=== PATIENT | male | born 1995 | race Caucasian/White ===

== ENCOUNTER 2017-08-03 09:26 | Inpatient (IN) | payer BC ==
--- NOTE | 2017-08-03 10:09 | EDPHY ---
H & P Time Seen by Provider: 08/03/17 09:37 HPI/ROS: CHIEF COMPLAINT: Hallucinating, delusional HISTORY OF PRESENT ILLNESS: 22-year-old male presents to the emergency department by private vehicle with his mother and father with loosen a shins and acting delusional over last few days. The patient was seen at [facility] yesterday was given 5 mg of Zyprexa twice. [facility] and then the patient left without being seen. Today the patient is cooperative and understands that he will need a mental health evaluation. The patient denies suicidal homicidal ideation. The patient states "I feel like I am in a dreamlike state". He does admit to using Xanax and drinking alcohol in April. He also smokes marijuana daily. He also used cocaine for short time in April as well. No other substance abuse at the family is aware of. The mother states that he will have conversations with himself frequently and is not aware where he is. No reported trauma. He has no physical complaints. He has not slept well in the last several days. REVIEW OF SYSTEMS: Constitutional: No fever, no chills. Eyes: No double or blurry vision. ENT: No sore throat. Respiratory: No cough, no shortness of breath. Cardiac: No chest pain. Gastrointestinal: No abdominal pain, vomiting or diarrhea. Genitourinary: No dysuria. Musculoskeletal: No neck or back pain. Skin: No rashes. Neurological: No headache. Past Medical/Surgical History: Marijuana use Social History: Rob at [facility] from [place] Smoking Status: Never smoked Physical Exam: General Appearance: Alert, no distress. Vital signs are stable. Afebrile. He is cooperative. He is mentating normally and answering questions appropriately. His mother and father at bedside. Eyes: Pupils equal and round. Extraocular motions are all intact. ENT: Mouth: Mucous membranes moist. Respiratory: No wheezing, rhonchi, or rales, lungs are clear to auscultation. Cardiovascular: Regular rate and rhythm. Gastrointestinal: Abdomen is soft and nontender, no masses, no rebound or guarding, bowel sounds normal. Neurological: Alert and oriented x 3, cranial nerves II through XII grossly intact Skin: Warm and dry, no rashes. Musculoskeletal: Nontender to palpate along the cervical, thoracic or lumbar spine. Neck is supple. Extremities: Full range of motion and no peripheral edema. Psychiatric: Patient is oriented X 3, there is no agitation. Constitutional: Initial Vital Signs Temperature (C) 36.7 C 08/03/17 09:28 Heart Rate 83 08/03/17 09:28 Respiratory Rate 20 08/03/17 09:28 Blood Pressure 113/52 L 08/03/17 09:28 O2 Sat (%) 97 08/03/17 09:28 O2 Delivery Mode Room Air Allergies/Adverse Reactions: No Known Allergies Allergy (Unverified 08/03/17 09:28) Home Medications: Medication Instructions Recorded Zyprexa 08/03/17 Medical Decision Making ED Course/Re-evaluation: The patient was placed on an M1 hold. He will be evaluated by mental health. Laboratory studies are all within normal limits. Urine tox screen positive for marijuana Patient has been evaluated by mental health and will be admitted to [address] [place] [address] unit. Differential Diagnosis: Altered mental status including but not limited to psychotic break, drug induced psychosis, hypoglycemia, infectious process, electrolyte abnormality, head injury and intoxicants. - Data Points Laboratory Results: Laboratory Results 08/03/17 09:45 08/03/17 09:45 08/03/17 08/03/17 08/03/17 09:57 09:45 09:45 WBC 7.08 10^3/uL 10^3/uL (3.80-9.50) RBC 5.53 10^6/uL 10^6/uL (4.40-6.38) Hgb 18.0 g/dL H g/dL (13.7-17.5) Hct 52.3 % H % (40.0-51.0) MCV 94.6 fL fL (81.5-99.8) MCH 32.5 pg pg (27.9-34.1) MCHC 34.4 g/dL g/dL (32.4-36.7) RDW 13.0 % % (11.5-15.2) Plt Count 221 10^3/uL 10^3/uL (150-400) MPV 10.6 fL fL (8.7-11.7) Neut % (Auto) 63.6 % % (39.3-74.2) Lymph % (Auto) 22.5 % % (15.0-45.0) [place] % (Auto) 10.2 % % (4.5-13.0) Eos % (Auto) 1.6 % % (0.6-7.6) Baso % (Auto) 1.4 % % (0.3-1.7) Nucleat RBC Rel Count 0.0 % % (0.0-0.2) Absolute Neuts (auto) 4.51 10^3/uL 10^3/uL (1.70-6.50) Absolute Lymphs (auto) 1.59 10^3/uL 10^3/uL (1.00-3.00) Absolute Monos (auto) 0.72 10^3/uL 10^3/uL (0.30-0.80) Absolute Eos (auto) 0.11 10^3/uL 10^3/uL (0.03-0.40) Absolute Basos (auto) 0.10 10^3/uL 10^3/uL (0.02-0.10) Absolute Nucleated RBC 0.00 10^3/uL 10^3/uL (0-0.01) Immature Gran % 0.7 % % (0.0-1.1) Immature Gran # 0.05 10^3/uL 10^3/uL (0.00-0.10) Sodium 147 mEq/L H mEq/L (135-145) Potassium 4.5 mEq/L mEq/L (3.5-5.2) Chloride 104 mEq/L mEq/L (97-110) Carbon Dioxide 27 mEq/l mEq/l (22-31) Anion Gap 16 mEq/L mEq/L (8-16) BUN 16 mg/dL mg/dL (7-23) Creatinine 1.1 mg/dL mg/dL (0.7-1.3) Estimated GFR > 60 Glucose 44 mg/dL L mg/dL (70-100) Calcium 10.1 mg/dL mg/dL (8.5-10.4) TSH 0.732 uIU/mL uIU/mL (0.465-4.680) Urine Opiates Screen NEGATIVE (NEGATIVE) Urine Barbiturates NEGATIVE (NEGATIVE) Ur Phencyclidine Scrn NEGATIVE (NEGATIVE) Ur Amphetamine Screen NEGATIVE (NEGATIVE) U Benzodiazepines Scrn NEGATIVE (NEGATIVE) Urine Cocaine Screen NEGATIVE (NEGATIVE) U Marijuana (THC) Screen NON-NEGATIVE H (NEGATIVE) Ethyl Alcohol < 10 mg/dL mg/dL (0-10) Departure - Departure Disposition: [facility] IP Clinical Impression: Acute psychosis, Delusional disorder, Hallucinations Condition: Good Referrals: RUSH HOPSON [Other] - As per Instructions
[2017-08-03 10:14] LABS: PLATELET COUNT 221 10^3/uL (150-400)
[2017-08-03] MEDS ORDERED: ACETAMINOPHEN 325 MG TAB PO PRN (19:33)
[2017-08-03] MEDS ORDERED: LORazepam 0.5 MG TAB PO PRN (19:33)
[2017-08-03] MEDS ORDERED: MAGNESIUM HYDROXIDE 30 ML UDCUP PO PRN (19:34)
[2017-08-03] MEDS ORDERED: MAG HYDROX/AL HYDROX/SIMETH 30 ML UDCUP PO PRN (19:34)
[2017-08-03] MEDS: OLANZapine DISINTEGR 5 MG TAB PO PRN (20:28)
[2017-08-03] MEDS: NICOTINE POLACRILEX 2 MG GUM B PRN (20:29)
[2017-08-04 06:44] VITALS: RESP 14
[2017-08-04] MEDS: NICOTINE POLACRILEX 2 MG GUM B PRN ×3 (09:50→20:01)
[2017-08-04] MEDS ORDERED: LORazepam 0.5 MG TAB PO PRN (12:18)
[2017-08-04] MEDS: OLANZapine DISINTEGR 5 MG TAB PO PRN (13:06)
--- NOTE | 2017-08-04 14:28 | BAPA ---
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 His parents live in [place] but are currently in [place] visiting. CHIEF COMPLAINT: "My parents are concerned." HISTORY OF PRESENT ILLNESS: The patient is a limited historian with limited detail to his response to questions. The patient reported that he had a decline in grades over the past year. He admitted to abusing alcohol several days a week with binge drinking. He had intermittently used sedatives like Xanax and cocaine around the holidays. He smokes cannabis 3 times a day. He reports living in a fraternity house. Apparently, he had last week off from school for spring. His parents came from [place] and the 3 of them went to [place] to go skiing. During that time, apparently, the patient had severe insomnia and went 4 days without sleep. During that time, he was acting erratically and disorganized and was briefly agitated. He made strange statements about seeing camels and reported people were coming into his hotel room. He also reported hearing voices of people talking to him that were not there. He also was acting bizarre and grabbing things that were not there and acting strange. He apparently was taken to the emergency room at [employer] and started on olanzapine 5 mg at night and given a prescription for a few days of this medication. The family drove the patient back to [place]. The patient continued to be symptomatic with mood swings, irritability, agitation, disorganized thinking, disorganized behavior and possible auditory hallucinations, and his parents took the patient to the [facility] Emergency Room. There he was guarded and minimized his symptoms. He was placed on an M1 hold yesterday in the morning in the [facility] Emergency Department and then admitted to the psychiatric unit over here at [address] [place] [address]. The patient did take Zyprexa 5 mg last night along with 1 mg lorazepam. The patient reports this morning he continues to have racing thoughts. He reports remission of auditory hallucinations of 1 or 2 voices commenting on his actions. He denies any hallucinations today or any command hallucinations. He denies suicidal or homicidal thoughts. He reports over the past week having progressive worsening insomnia including going 4 days without sleep. He endorses mood swings, irritability, decreased need for sleep, as well as racing thoughts. He denies any plans to hurt himself or others. He denies paranoia today but describes having some paranoia prior to the [employer] ER visit. He denies feeling hopeless, helpless, or suicidal. He reports smoking cannabis 3 times a day most of the past 2 years. He reports binge drinking alcohol 2 to 3 times a week over 5 drinks. He reports past abuse of cocaine and Xanax but none in the past week. He denies any physical complaints right now or any recent stressful life events. Patient initially refused to allow this M.D. to speak to his mother, who was visiting on the unit today, but later agreed to sign a BERNARD to allow her to be involved with his discharge planning. PAST PSYCHIATRIC HISTORY: The patient has no prior psychiatric hospitalizations. He has no history of suicide attempts or violence toward others. He denies any history of arrests. The patient reports seeing an outpatient psychiatrist in [place] for possible diagnosis of attention deficit hyperactivity disorder during grade school, middle school and high school. He reports intermittently taking Adderall, Vyvanse, and Concerta over several years but none recently. The patient's mother reports the patient became more irritable with Vyvanse and Adderall and never took Concerta regularly. MEDICATIONS: Zyprexa 5 mg p.o. at bedtime that was prescribed from the [employer] emergency room recently. ALLERGIES: No known drug allergies. PAST MEDICAL HISTORY: denies any chronic medical problems or any history of head injuries or seizures. SOCIAL HISTORY: He is raised by his parents without abuse or neglect. He denies trauma. His parents live in [place], but they are currently in [facility]. 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 He reports getting B's and C's. He reports getting along with his housemates in his fraternity house. He has never been , has no children. No history of service. FAMILY HISTORY: He denies any known family history of severe mental illness or suicide. LABORATORY: Urine tox screen was positive for cannabis, negative for other drugs of abuse. Alcohol level is negative. White blood cell count 7.0, hemoglobin 18.0, platelet count 221. Sodium 147, potassium 4.5, creatinine 1.1 , glucose 44. In the emergency room, a repeat was 105. Hemoglobin A1c was 4.7, calcium 10.1, AST 21, ALT 23. Non-fasting lipid panel: Triglycerides 137, LDL 28, HDL 51. TSH 0.6. VITAL SIGNS: 170 cm tall, 63.5 kg with a BMI of 21.9. Blood pressure 108/65, heart rate 54, respiratory rate 14, pulse ox 96% on room air, temperature is afebrile. MENTAL STATUS EXAMINATION: He is alert white male who is somewhat thin. He is cooperative. His speech is rapid and loud at times. His mood is "pissed off that I am here." His affect is briefly irritable, but later he is quietly reading in his room. His thoughts are organized but have very limited detail and he appears illogical at times discussing recent events. He denies auditory hallucinations this morning. He reported auditory hallucinations of 2 voices commenting on his actions just over the past week. He denies paranoia that anyone is trying to hurt him. He denies any violent thoughts. He denies suicidal thoughts. His insight appears to be limited. His judgment is questionable. The patient initially reported he did not want his mother involved in his treatment, but later agreed to have her involved and this MD met with the patient and his mother on the unit. During that visit, the patient ate a large burrito and was calm mostly but briefly irritable talking to his mother and to this M.D. ASSESSMENT: 1. Bipolar disorder type 1, most recent episode manic, severe. 2. Cannabis related psychotic disorder. 3. Cannabis use disorder, severe. 4. Alcohol use disorder, mild. 5. History of sedative and stimulant abuse. The overall assessment is the patient apparently had manic symptoms of racing thoughts, severe insomnia and erratic behavior, and also developed some psychotic symptoms including paranoia and hallucinations, concurrent with cannabis abuse. The patient is mostly calm but somewhat illogical this morning and briefly irritable. He denies any dangerous thoughts. He did tolerate Zyprexa 5 mg last night and also received 1 mg of lorazepam last night. He apparently had gotten olanzapine for few nights from the [employer] emergency department. PLAN: 1. The patient is on an M1 hold for grave disability. 2. The patient will be on 15 minute safety checks to monitor his behavior. 3. Will monitor for mood stability, irritability, and bipolar symptoms. 4. Discussed the risks and benefits of antipsychotic medications along with lithium and Depakote as mood stabilizers. Patient prefers to continue olanzapine as he reports some benefit from this medication as he is no longer having hallucinations and is having somewhat improved sleep. The patient was given information about olanzapine causing tardive dyskinesia, weight gain, diabetes, metabolic syndrome. We will increase the dose from 5 mg to 10 mg using the olanzapine oral dissolving tablet Zydis. 5. The patient declined an alternative treatment with either lithium or Depakote after discussion of side effects and risks. Discussed possibly working with an outpatient provider to transition off olanzapine to one of these alternative mood stabilizers in the future if stable. 6. Patient will sign a release of information for [facility] to arrange for psychiatry followup. 7. The patient's mother visited on the unit and reviewed the assessment, and was in agreement with the treatment plan. 8. The patient has nicotine gum p.r.n. for nicotine cravings as he intermittently smokes cigarettes. 9. Discussed with the patient the dangers of alcohol use causing impulsivity, blackouts, amnesia, severe mood swings and increasing the risk of suicide and violence. The patient is not interested in any type of substance abuse treatment for alcohol use disorder. 10. Discussed the dangers of cannabis causing anxiety, paranoia, psychosis and agitation. The patient is not interested in quitting cannabis or getting any type of substance use treatment at this time. 11. Patient will have a baseline physical exam by the hospitalist. He was cleared by the Emergency Department physician to be admitted to [facility]. 12. Patient had a low glucose in the ER but a glucometer on the unit was within normal limits. /[id number]/MODL MTDD
--- NOTE | 2017-08-04 19:54 | BCON ---
[f rep st] BEHAVIORAL HEALTH CONSULTATION INTERNAL MEDICINE CONSULTATION DATE OF CONSULTATION: 08/04/2017 REFERRING PHYSICIAN: Maximiliano Tom MD REASON FOR REFERRAL: Medical clearance for inpatient behavioral health stay. HISTORY OF PRESENT ILLNESS: This patient was brought to the emergency department by his mother and f ather with hallucinations and delusions over several days. He was seen at the [facility] th e previous day and given 5 mg of Zyprexa x2. He is currently without any acute complaints. PAST MEDICAL HISTORY: He denies any history of any medical problems. PAST SURGICAL HISTORY: He has had surgery for a football injury on his right shoulder. MEDICATIONS: He was not on any medications. 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 He lives with alfa kearney roommates. He denies tobacco smoking. He reports drinking alcohol, up to 6 beers at a time, venecia andrea on weekends. FAMILY HISTORY: Noncontributory. REVIEW OF SYSTEMS: A 10-point review of systems was conducted and was negative other than his descri ption of currently feeling under stress. PHYSICAL EXAMINATION: VITALS: Blood pressure is 108/65, heart rate is 54, respiratory rate is 14, o xygen saturation is 96% on room air, temperature is 36.5 degrees centigrade. His weight is 63.5 kg f or a body mass index of 21.9. GENERAL: This is a well-nourished, well-developed man. Appears his c hronologic age. Cooperative and in no acute distress. HEENT: Extraocular movements are intact. Pu pils are equal, round, reactive to light. Mucous membranes are moist. Dentition is in good conditio n. NECK: Supple. HEART: Regular rate and rhythm with no murmurs, rubs, or gallops. LUNGS: Clear to auscultation bilaterally. ABDOMEN: Benign. EXTREMITIES: There is no cyanosis, clubbing, or ed camilo. NEUROLOGIC: He is alert and oriented x3. Cranial nerves 2-12 are grossly intact. There is no focal weakness. Sensation is intact to light touch, and gait is within normal limits. LABORATORY STUDIES: Drawn in the emergency department. CBC showed a slightly elevated hemoglobin an d hematocrit at 18 and 52.3, otherwise was within normal limits. Serum chemistries showed an elevate d sodium at 147; his blood sugar was low at 44. Hemoglobin A1c was 4.7. Liver functions were normal . Cholesterol was low at 106, with an LDL also low at 28, HDL was normal at 51. TSH was normal. To xicology screen in the serum was negative for ethyl alcohol and in the urine was non negative for mar ijuana but otherwise negative for substances of abuse. ASSESSMENT AND RECOMMENDATIONS: 1. Mental health problems, pending further evaluation and management per Psychiatry and the mental [facility] team. 2. Hypernatremia of unclear etiology together with a slight polycythemia or hemoconcentration on the CBC. Might implicate dehydration. Abnormalities are very minor and no further evaluation is indica ayla at present. Would monitor for normal oral food and fluid intake. 3. Alcohol use disorder. Might benefit from specific substance abuse counseling regarding binge dri nking. I see no medical contraindications to this patient's continued stay [facility] or to any psychiatric medications or procedures. Thank you very much for including me in the care of this patient and please do not hesitate to contac t me or the hospitalist service should there be need for further medical evaluation. /[id number]/MODL
[2017-08-04] MEDS: OLANZapine DISINTEGR 10 MG TAB PO SCH (20:01)
[2017-08-05] MEDS: NICOTINE POLACRILEX 2 MG GUM B PRN ×3 (09:52→20:23)
[2017-08-05] MEDS ORDERED: hydrOXYzine HCL 25 MG TAB PO PRN (10:16)
--- NOTE | 2017-08-05 10:51 | SOAPPROG ---
SOAP Progress Note Assessment/Plan: Assessment: Bipolar Disorder, I, most recent episode manic Cannabis related psychotic disorder Cannabis and Alcohol Use Disorders Patient is less irritable today with improved insight and reports remission of AH. Plan: Patient is on M-1 hold Plan discharge in AM if continued improvement Education about bipolar disorder Continue Olanzapine 10mg QHS Discontinue PRN Lorazepam. Hydroxyzine 25mg PRN anxiety; Zydis 5mg PRN agitation Discussed motivation for sobriety, dangers of cannabis and alcohol for mental and physical health, relationships, school performance Coordinate discharge planning with parents Refer to [facility] 08/05/17 10:53 Subjective: CC: "Doing better" Patient reports sleeping well overnight. Denies racing thoughts, irritability, or agitation this AM. Endorses irritability yesterday after M.D. interview and visit by mother. Denies violent thoughts or AH or VH or paranoia. Reports he spoke to friends and brother on phone about his diagnosis of Bipolar Disorder; patient reports he agrees with diagnosis but does not currently feel unstable. Reports willingness to take Olanzapine after discharge and see a psychiatrist at [facility]. Agrees to parents should stay in [place] for several days after discharge for support. Reports he is unsure if he wants to quit cannabis or alcohol or cut back use; reports no interest in substance abuse treatment. Denies sedation or slowing from medication. Reports AH prior to admission but none yesterday or today 'like my friends talking to me but they weren't there.' Objective: Vital Signs Temp Pulse Resp BP Pulse Ox 36.5 C 54 L 14 108/65 96 08/04/17 06:00 08/04/17 06:00 08/04/17 06:00 08/04/17 06:00 08/04/17 06:00 Staff report patient slept 9 hours. Compliant with 10mg Zydis last night. Took PRN Lorazepam 1mg and Zydis 5mg @1300 yesterday after visit from mother due to brief agitation and irritability with staff. Has been calm on unit and pleasant with staff later in day and this AM and calm and appropriate while attending groups. SLUMS (off by one day on date; 05/05 reversed number) Alert WM. Calm and pleasant. Speech RRR, less pressured/rapid than yesterday. Mood 'better' affect restricted. Thoughts organized. Denies SI or HI. Denies AH or paranoia. Insight limited. - Time Spent With Patient Time Spent With Patient: 20 minutes - Pending Discharge Pending Discharge Within 24 Hours: Yes Pending Discharge Within 48 Hours: No Pending Discharge Date: 08/06/17 Pending Discharge Time: 11:00 ICD10 Worksheet Patient Problems: Problems Problem Status Onset Acute psychosis Acute Alcohol abuse Acute Bipolar disorder Acute Cannabis use disorder, severe, dependence Acute Delusional disorder Acute Hallucinations Acute
[2017-08-05] MEDS: OLANZapine DISINTEGR 10 MG TAB PO SCH (20:19)
[2017-08-06 06:28] VITALS: BP 130/83; PULSE 64; TEMP 97.6; O2SAT 98
--- NOTE | 2017-08-06 09:07 | BDS ---
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 His parents live in [place], but are here in [place], [facility]. Patient lives in a fraternity that includes his younger brother. REASON FOR ADMISSION: Please see initial psychiatric evaluation from August 04, 2017. The patient apparently had been having escalating bingeing on alcohol and daily cannabis abuse, concurrent with erratic behavior, irritability, decreased sleep. The week prior to admission, the patient was on spring break with his parents and they were skiing in [place]. The patient apparently went 4 days without sleep, was having racing thoughts, rapid speech, irritability, and disorganized thinking. He was also having brief auditory hallucinations, paranoia, and possible visual hallucinations. The patient was taken to the [facility] emergency room by his parents. He was given a prescription for olanzapine 5 mg at night. The patient continued to have reduced sleep, disorganized thinking, and hallucinations and brief agitation and the patient was taken to the [facility] Emergency Department. He was placed on an M1 hold there and admitted to [address] [place] [address]. HOSPITAL COURSE: The patient reported a history of bipolar symptoms for about 6 months, including decreased sleep, racing thoughts, irritability, erratic behavior. Apparently, this escalated with 4 days without sleep and then having visual and auditory hallucinations and paranoia. The patient had been taking 5 mg of olanzapine at night for a few nights, with mild improvement prior to admission. When he was admitted to the unit, he did get a scheduled 5 mg olanzapine plus an extra 5 mg of olanzapine and 1 mg of Ativan and slept overnight. The patient was given counseling about the dangers of daily cannabis use causing anxiety, paranoia, hallucinations, and disorganized thinking. He was given counseling about the dangers of alcohol causing impulsivity, mood swings, depression, and increased risk of violence and suicide. The patient declined referral to any type of substance abuse treatment. He initially appeared irritable with rapid speech. The patient was given education about bipolar disorder. He was given the options of starting either lithium, Depakote, or continuing the olanzapine, for treatment of a bipolar episode and cannabis-related psychotic symptoms. The patient, on the unit, reported remission of paranoia or hallucinations. He slept better. He tolerated olanzapine 10 mg at night and was sleeping consistently on the unit. The patient initially was irritable with rapid speech. He had an improvement with a more stable mood, reduction in irritability, reduction in pressured speech. The patient's parents, who live in [place], were in [place]. They came to visit the patient several times on the unit and reported the patient was much improved and close to his baseline. They were agreeable to monitor the patient taking his olanzapine after discharge and to assist him in getting followup mental health treatment a [facility]. The patient's mother was going to remain in [place] for 1-2 weeks. The patient's brother lives in the same building as the patient and will also check on the patient daily after discharge. He was generally calm and pleasant with the staff but was isolative and irritable initially. The patient was eating well, sleeping well prior to discharge. Throughout the hospitalization, the patient repeatedly denied any thoughts to hurt himself or others. The patient was given information about the risks and benefits of lithium, Depakote, and olanzapine for treatment of bipolar disorder. The patient preferred to continue olanzapine. He was counseled about the risks of tardive dyskinesia, sedation, and metabolic syndrome. The patient was agreeable to have his discharge coordinated with [facility]. He declined substance abuse treatment referrals. CONDITION ON DISCHARGE: He is an alert white male in no acute distress. He is pleasant, cooperative. His speech is regular rate and rhythm. His thoughts are organized. He describes his mood as "pretty good." His affect is euthymic and pleasant. He denies any thoughts to hurt himself or others. He denies auditory hallucinations or paranoia. His memory is fair. His insight is improved. His judgment is appropriate. ADVANCED DIRECTIVE: The patient does not have an advanced directive. METABOLIC SCREENING: The patient had a baseline hemoglobin A1c and lipid panel that were normal. He was counseled about the risks of olanzapine causing metabolic syndrome. He was counseled about eating a low-sugar, low- carbohydrate diet, and having his glucose and lipid panel rechecked in 1 month. NICOTINE USE DISORDER SCREENING: Patient reports intermittent use of cigarettes. He was provided with nicotine gum on the unit. He was counseled about the dangers of smoking and encouraged to use [id number] nicotine gum for nicotine cravings. ALCOHOL USE DISORDER SCREENING: Patient binge drinks alcohol, over 5 drinks twice a week. The patient was counseled about the dangers of alcohol. He declined a trial of naltrexone for alcohol cravings. He declined referral to alcohol or substance abuse treatment. DISCHARGE DIAGNOSES: 1. Bipolar disorder type 1, most recent episode manic, severe. 2. Cannabis-related psychotic disorder. 3. Cannabis use disorder, severe. 4. Alcohol use disorder, mild. DISCHARGE MEDICATIONS: Olanzapine 10 mg p.o. q.h.s. DISPOSITION: The patient is leaving the unit with his parents. They will monitor his medication compliance after discharge along with his brother who lives in his building. They will assist him in getting followup treatment at [facility]. FOLLOWUP: The patient has an appointment with a residential case manager at [facility], who will assign him to a psychiatrist for further medication management. The patient's parents reported that they would assist him in getting an outpatient psychiatry followup in [place] after the patient completes his semester of school. The patient has previously gotten medications for ADHD from a psychiatrist in [place], but is not currently taking stimulant medications. LEGAL STATUS: The patient was admitted on an M1 hold but will be discharged to be receiving treatment on a voluntary basis after discharge. /[id number]/MODL MTDD
== END 2017-08-06 09:19 | disposition home or self-care (01) | DRG 885 ==
LOC: BBEH 17:20
PROVIDERS: ADMIT Psychiatry & Neurology Psychiatry; ATTEND Psychiatry & Neurology Psychiatry
DX: F31.13 Bipolar disorder, current episode manic without psychotic features, severe (principal); F12.959 Cannabis use, unspecified with psychotic disorder, unspecified; Z72.89 Other problems related to lifestyle
CPT/HCPCS: 80305; G0480